=== PATIENT | male | born 2000 | race African-American/Black ===

== ENCOUNTER 2021-08-03 20:32 | Emergency (ER) | payer OTHER, SELFPAY ==
[2021-08-03 20:45] VITALS: BP 135/66; PULSE 80; RESP 18; TEMP 36.8; O2SAT 100; BMI 25.8
[2021-08-03] MEDS: Acetaminophen 325 MG TABLET 650 MG PO (20:52)
--- NOTE | 2021-08-03 21:35 | ED.WOUNDLAC ---
HPI - Wound/Laceration General Chief Complaint: Wound/Laceration Stated Complaint: eye inj Source: patient Mode of arrival: ambulatory Limitations: no limitations History of Present Illness HPI narrative: 20-year-old male presents with laceration to the left eyelid after being hit in the face with an elbow while playing basketball. Also states to feel dizzy but does not report any other symptoms. Did not lose consciousness and does not complain of any pain. Onset (ago): hour(s) (Within the hour of arrival) Location: face Place: school Patient tetanus UTD: No Context: accidental Associated symptoms: none Treatments prior to arrival: bandage Related Data Allergies Allergy/AdvReac Type Severity Reaction Status Date / Time No Known Allergies Allergy Verified 08/03/21 20:44 Review of Systems Review of Systems: Constitutional: No Fever, No Chills ENT/Mouth: No Ear Pain, No Hoarseness, No sore throat Eyes: No Eye Pain, No Swelling, No Redness, No Foreign Body Cardiovascular: No Chest Pain, No SOB Respiratory: No Cough, No Dyspnea Gastrointestinal: No Nausea, No Vomiting, No Diarrhea, No abdominal Pain Genitourinary: No Dysuria, No Hematuria Musculoskeletal: No joint pain, No Myalgias, No Joint Swelling Skin: Positive left eyelid laceration, No rash Neuro: No Weakness, No Numbness, No Paresthesias, No Loss of Consciousness, No Dizziness, No Headache Psych: No Anxiety/Panic, No Depression Heme/Lymph: no easy bruising, no Lymphadenopathy Endocrine: No Polyuria, No Polydipsia Yes all other systems are reviewed and are negative [facility] Past Medical History Attestation statement: The following information was validated with the patient. Source: old records reviewed Medical History Asthma Social History Social History Advance Directives: No Advance Directives Information Provided: Yes Physical Exam Vital Signs: Vital Signs: Last Vital Signs Temp 98.2 F 08/03/21 20:45 Pulse 80 08/03/21 20:45 Resp 18 08/03/21 20:45 BP 135/66 08/03/21 20:45 Pulse Ox 100 08/03/21 20:45 BMI result Body Mass Index 25.8 Appearance: Alert. Oriented X3. No acute distress. Head: Normal external exam. Normocephalic. Atraumatic. No Siegel signs noted. No raccoon eyes noted Eyes: PERRLA. EOMI. Conjunctiva and sclera normal. Eyelids normal. 2 cm laceration to the lateral left lower eyebrow funduscopic exam is normal. No indication of retinal detachment. No nystagmus. ENT: TM's Normal. Pharynx normal. Uvula midline. Moist mucous membranes. No trismus noted. No drooling noted. No muffled voice noted. No septal hematoma. Neck: Normal inspection. Neck supple. No adenopathy. No meningeal signs. No vertebral tenderness to palpation. No axial loading tenderness. CVS: Normal heart rate and rhythm. Heart sound normal. No murmurs noted. Respiratory: No respiratory distress. Painless inspiration. Breath sounds normal. Abdomen: Soft and nontender. No visible injury noted. Back: No CVA tenderness. Full range of motion noted. Skin: Skin warm and dry. Normal skin color. Normal skin turgor. 2 cm laceration to the lateral left lower eyebrows Extremities: No lower extremity edema. Extremities exhibit normal range of motion. Extremities nontender. Neuro: cranial nerves 2-12 intact, no focal neural deficits, strength 5/5 to all extremities, No motor deficit. No sensory deficit. Course Course Course Narrative: 20-year-old male presents with laceration to the left lateral eyebrow. Unknown when his last Tdap vaccine was updated. Cranial nerves 2-12 intact. Neurovascularly stable. Negative Romberg. No indication of retinal detachment, funduscopic exam was normal. No septal hematomas. Patient full range of motion against resistance to the cervical spine. No vertebral tenderness noted to the cervical thoracic or lumbar spine. Plan of care is to update Tdap vaccine and suture laceration. Prepped and draped in sterile fashion. Patient tolerated procedure well. Patient verbalized understanding of and agrees to plan of care discharge home. Verbalized understanding of signs and symptoms indicating need for emergent intervention. MDM - Wound/Laceration MDM Narrative Medical decision making narrative: Concussion Differential Diagnosis Differential diagnosis: Likely laceration Medical Records Attestation: I reviewed the patient's medical records. Procedures Laceration Laceration 1: Site: face Side (If applicable): left Size (cm): 2 Description: linear Depth: simple, single layer Local Anesthetic: lidocaine 2% Amount of anesthesia used (mL): 3 Pre-repair: wound explored, irrigated extensively and deep structures intact Skin layer closed with: nylon Size (cm): 6-0 Number of sutures: 4 Technique: simple, interrupted Discharge Plan Discharge Clinical Impression: Facial laceration, Concussion Patient Disposition: Home, Self-Care Instructions: Care For Your Stitches (ED), Laceration (ED), Concussion (ED), Post Concussion Syndrome (ED) Additional Instructions: You were evaluated for laceration to the left eyelid. We placed 4 sutures to this laceration. Please return in 5-7 days to have sutures removed. Please follow-up concussion protocol. You must follow-up with primary care physician this week for concussion protocol evaluation. Thank you for choosing this emergency department for evaluation. Please follow-up with primary care physician as needed. Return to the emergency department for any new, concerning, or worsening symptoms.
[2021-08-03] MEDS: Diphth,Pertus(ACell),Tet Adult 0.5 ML SYRINGE IM (22:19)
[2021-08-03] MEDS: Lidocaine HCl 2 % MPF 5 ML VIAL INFILTRATI (22:20)
== END 2021-08-03 22:28 | disposition home or self-care (01) ==
PROVIDERS: Emergency Provider Student in an Organized Health Care Education/Training Program
DX: S01.112A Laceration without foreign body of left eyelid and periocular area, initial encounter (principal); S06.0X0A Concussion without loss of consciousness, initial encounter; G44.309 Post-traumatic headache, unspecified, not intractable; Y33.XXXA Other specified events, undetermined intent, initial encounter; Y93.67 Activity, basketball; Y92.310 Basketball court as the place of occurrence of the external cause; Y99.9 Unspecified external cause status
CPT/HCPCS: 12011; 90471; 90715; 99283; 99284

== ENCOUNTER 2022-04-07 09:46 | Emergency (ER) | payer OTHER, SELFPAY ==
[2022-04-07 10:57] VITALS: BP 115/88; PULSE 88; RESP 18; TEMP 37.2; O2SAT 97; BMI 26.6
--- OUTSIDE RECORDS SUMMARY | 2022-04-07 15:51 | XMS_ITS | Continuity of Care Document ---
:2000 Author Organization [facility] Address Unavailable , Care Team Providers Name Role Phone Zackary CHUNG, Raul Irby Primary Care Physician Unavailable Encounter [facility] Date(s): 10/28/21 - 11/27/21 [facility] Attending Physician: Domo Villa Admitting Physician: Domo Villa Referring Physician: Domo Villa
--- OUTSIDE RECORDS SUMMARY | 2022-04-07 15:51 | XMS_ITS | Continuity of Care Document ---
:2000 Author Organization [facility] Address Unavailable , Care Team Providers Name Role Phone Zackary CHUNG, Raul Irby Primary Care Physician Unavailable Encounter [facility] Date(s): 09/02/21 - 11/27/21 [facility] Attending Physician: Raul Raymundo MD
--- NOTE | 2022-04-07 16:05 | ED_ITS ---
HPI - Head Injury General Chief complaint: Head Injury Stated complaint: possible concussion Time Seen by Provider: 04/07/22 15:33 Source: patient Mode of arrival: ambulatory Limitations: no limitations History of Present Illness HPI Narrative: Patient is a 21-year-old male who presents emergency department for evaluation after head injury. He reports that yesterday while at his home he struck the back of his head against a being of the attic ceiling. Denies loss of consciousness, denies any anticoagulants or coagulation disorders. He initially was having a posterior headache. Today he is experiencing intermittent blurred vision in addition to headache. Denies confusion, dizziness, lightheadedness nausea, vomiting, photophobia, phonophobia, neck pain, neck stiffness. Was sent today from [facility] for evaluation, [place]. Related Data Allergies Allergy/AdvReac Type Severity Reaction Status Date / Time banana Allergy Itching Verified 04/07/22 11:00 Review of Systems Review of Systems: Constitutional : No Fever, No Chills, No Fatigue ENT/Mouth : No sore throat, No Rhinorrhea Eyes: No Eye Pain, No Swelling, No Redness, positive blurred vision Cardiovascular : No Chest Pain, No SOB, No Dyspnea on Exertion Respiratory : No Cough, No Sputum Gastrointestinal : No Nausea, No Vomiting, No Diarrhea, No abdominalPain Genitourinary : No Dysuria, No Urinary Frequency, No Hematuria, Musculoskeletal : No joint pain, No Myalgias, No Joint Swelling Skin : No Skin Lesions, No rash Neuro : No Weakness, No Numbness, No Dizziness, positive Headache Psych : No Anxiety/Panic, No Depression Heme/Lymph: No Bruising, No Bleeding,No Lymphadenopathy Endocrine : No Polyuria, No Polydipsia Yes all other systems are reviewed and are negative [facility] Past Medical History Attestation statement: The following information was validated with the patient. Source: old records reviewed Medical History Asthma Social History Social History Advance Directives: No Advance Directives Information Provided: No Physical Exam Vital Signs: Vital Signs: Last Vital Signs Temp 98.9 F 04/07/22 10:57 Pulse 88 04/07/22 10:57 Resp 18 04/07/22 10:57 BP 115/88 10/26/22 10:57 Pulse Ox 97 04/07/22 10:57 O2 Del Method 04/07/22 10:57 BMI result Body Mass Index 26.6 Appearance: Alert.?Oriented to person, place and time. No acute distress.? Normal affect. Head: Normocephalic Eyes: Pupils equal, round and reactive to light. EOMI. Conjunctiva and sclera normal? No Siegel sign noted. No raccoon eyes noted ENT: No septal hematoma, nares patent bilaterally. External auditory canal normal tympanic membrane pearly humphrey and intact bilaterally. Dentition normal, no fractured teeth. No lesions or lacerations of oropharynx. Uvula midline. Moist mucous membranes. Neck: Normal inspection.? Neck supple.??No palpable tenderness, step-off, deformities. CVS: Heart sounds normal. Normal heart rate and rhythm.? Pulses normal.?? Respiratory: No respiratory distress.? Lung sounds clear to auscultation bilaterally?? Abdomen: Soft and non-tender. Normoactive bowel sounds. ?? Skin: Skin warm and dry.? Normal skin color.? Extremities: No lower extremity edema.? Neuro: Moves all extremities spontaneously. Sensation intact bilaterally. CN II- XII intact. No focal neuro deficits. Course Course Course Narrative: Patient is a 21-year-old male who presents emergency department for evaluation after a head injury occurred yesterday. At the time of examination he is well- appearing, no focal neurological deficits. Vital signs are stable. He is conscious alert and oriented x4, ambulatory with a steady gait, speaking clear full sentences. Examination of the head is normocephalic, no lesions or lacerations. Symptoms consistent with concussion, low suspicion for ICH/SAH/ hematoma. Would defer head CT at this time. Discussed plan of care for discharge home, rest, avoidance of prolonged screen time, stay well-hydrated, acetaminophen as as needed for pain. Reviewed worsening signs and symptoms to return back to emergency department for. All questions were answered, patient was discharged home in stable condition. MDM - Head Injury Medical Records Attestation: I reviewed the patient's medical records. Discharge Plan Discharge Clinical Impression: Concussion without loss of consciousness Patient Disposition: Home, Self-Care Instructions: Concussion (ED) Additional Instructions: Your symptoms are consistent with a concussion after head injury. Please be sure to rest over the next couple of days, drink plenty of water, avoid prolonged screen time on cell phone, computer, or television as this may worsen your headaches. You can take ibuprofen 200 mg, 3 tablets (600mg) every 6-8 hours as needed for pain, in addition to Tylenol 500 mg, 2 tablets (1,000mg) every 4-6 hours as needed for pain, but not to exceed 3 doses daily (3,000mg).? Follow-up with your primary care provider within the next week. Return to the emergency department any new or worsening symptoms or concerns. Referrals: Physician,None [Primary Care Provider] - Stand Alone Forms: Work/School Release Discharge Date/Time: 04/07/22 20:14
== END 2022-04-07 20:14 | disposition home or self-care (01) ==
PROVIDERS: Emergency Provider Emergency Medicine
DX: S06.0X0A Concussion without loss of consciousness, initial encounter (principal); Y29.XXXA Contact with blunt object, undetermined intent, initial encounter; Y93.9 Activity, unspecified; Y92.009 Unspecified place in unspecified non-institutional (private) residence as the place of occurrence of the external cause; Y99.9 Unspecified external cause status
CPT/HCPCS: 99281

== ENCOUNTER 2025-04-17 12:41 | Outpatient (AMB) | payer OTHER, SELFPAY ==
--- NOTE | 2025-04-17 12:47 | A.OFFPC_ITS ---
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 to review their health information ? ?Patient Portal. This interactive web portal will enable patients and their families to take an active role in their care by providing easy, secure access to their health information via the internet. The Patient Portal provides patients with instant access to their health information, including laboratory results, medications, allergies, demographic information, visit history, and more. In addition to managing their own care, parents and health care proxies with authorized consent will appreciate the ability to access the records of those individuals for whom they provide care. Please note: if you wish to gain access (Proxy) to another patient?s portal, you will be required to come to the Medical Records Department in person at [facility]. Both the patient giving proxy access and the proxy will need to provide photo identification and complete the appropriate authorization. The Patient Portal also allows track their appointments online. The [facility] Patient Portal also saves patients time by allowing them to submit updates to their demographic and contact information prior to their visits. Portal email notifications will also alert patients to any new activity on their portal, such as test results and new appointments. In order to initially enroll in the [facility] Patient Portal, you will need to enter some required information including the following: * your [facility] Medical Record number * your personal home email address * name * date of Please note: In order to enroll in the [facility] Patient Portal, we need to have your email address on file in your electronic medical record. ?The email address needs to be specific for one person (yourself) in order for your Portal enrollment to be successful. ?You can update your email address in person with our Registration staff when you are registering for a hospital visit. ?Otherwise, you will need to come to the Health Information Management (Medical Records) Department at [facility]. ?We are open from Tuesday ? Tuesday from 7:30 a.m. ? 4:30 p.m. ?You will be required to present a photo id. Once you have successfully enrolled in the Patient Portal, you will receive a one-time user id and password for the Portal, sent to your email address. ?This will allow you to log into the Patient Portal within 99 hrs and reset your own logon id and password, and define personal security questions. ?Once your permanent login and password have been set, you can log into the [facility] Patient Portal at any time via the blue button above or from the Portal Logon button on any page of the [facility] website. [facility] and [facility] encourage all of our patients to enroll in Patient Portal as it presents a valuable opportunity for patients and their families to actively participate in their care and stay healthy Welcome to [facility]. ?We look forward to working with you. Health screenings for men You should visit your health care provider regularly, even if you feel healthy. The purpose of these visits is to: Screen for medical issues Assess your risk for future medical problems Encourage a healthy lifestyle Update vaccinations and other preventive care services Help you get to know your provider in case of an illness Information Even if you feel fine, you should still see your provider for regular checkups. These visits can help you avoid problems in the future. For example, the only way to find out if you have high blood pressure is to have it checked regularly. High blood sugar and high cholesterol level also may not have any symptoms in the early stages. Simple blood tests can check for these conditions. There are specific times when you should see your provider or receive specific health screenings. The [place] Preventive Services Task Force publishes a list of recommended screenings. Below are screening guidelines for men ages 40 to 64. BLOOD PRESSURE SCREENING Have your blood pressure checked at least once every year. Watch for blood pressure screenings in your area. Ask your provider if you can stop in to have your blood pressure checked. Ask your provider if you need your blood pressure checked more often if: You have diabetes, heart disease, kidney problems, or are overweight or have certain other health conditions You have a first-degree relative with high blood pressure You are Black Your blood pressure top number is from 120 to 129 mm Hg, or the bottom number is from 70 to 79 mm Hg If the top number is 130 mm Hg or greater or the bottom number is 80 mm Hg or greater, this is considered stage 1 hypertension. Schedule an appointment with your provider to learn how you can lower your blood pressure. Effects of age on blood pressure CHOLESTEROL SCREENING Cholesterol screening should begin at age 35 for men with no known risk factors for coronary heart disease. Repeat cholesterol screening should take place: Every 5 years for men with normal cholesterol levels More often if changes occur in lifestyle (including weight gain and diet) More often if you have diabetes, heart disease, kidney problems, or certain other conditions COLORECTAL CANCER SCREENING If you are under age 45, talk to your provider about getting screened. You may need to be screened if you have a strong family history of colon cancer or polyps. Screening may also be considered if you have risk factors such as a history of inflammatory bowel disease or polyps. If you are age 45 to 75, you should be screened for colorectal cancer. There are several screening tests available: A stool-based fecal occult blood (gFOBT) or fecal immunochemical test (FIT) every year A stool sDNA test every 1 to 3 years Flexible sigmoidoscopy every 5 years or every 10 years with stool testing FIT done every year CT colonography (virtual colonoscopy) every 5 years Colonoscopy every 10 years You may need a colonoscopy more often if you have risk factors for colorectal cancer, such as: Ulcerative colitis A personal or family history of colorectal cancer A history of growths in your colon called adenomatous polyps DENTAL EXAM Go to the dentist once or twice every year for an exam and cleaning. Your dentist will evaluate if you have a need for more frequent visits. DIABETES SCREENING All adults who do not have risk factors for diabetes should be screened starting at age 35 and repeated every 3 years. If you have other risk factors for diabetes, such as a first degree relative with diabetes, overweight or obesity, high blood pressure, prediabetes, or a history of heart disease, you may be tested more often. If you are overweight and have other risk factors, such as high blood pressure and are planning to become , screening is recommended. EYE EXAM Have an eye exam every 2 to 4 years ages 40 to 54 and every 1 to 3 years ages 55 to 64. Your provider may recommend more frequent eye exams if you have vision problems or glaucoma risk. Have an eye exam that includes an examination of your retina (back of your eye) at least every year if you have diabetes. IMMUNIZATIONS Commonly needed vaccines include: Flu shot: get one every year COVID-19 vaccine: ask your provider what is best for you Tetanus-diphtheria and acellular pertussis (Tdap) vaccine: have as one of your tetanus-diphtheria vaccines if you did not receive it as an adolescent Tetanus-diphtheria: have a booster (or Tdap) every 10 years Varicella vaccine: receive 2 doses if you never had chickenpox or the varicella vaccine and were born in 1979 or after Hepatitis B vaccine: receive 2, 3, or 4 doses, depending on your exact circumstances, if you did not receive these as a child or adolescent, until age 59 Shingles (herpes zoster) vaccine: at or after age 50 Ask your provider if you should receive other immunizations, especially if you have certain medical conditions, such as diabetes or are at increased risk for some diseases such as pneumonia. INFECTIOUS DISEASE SCREENING Screening for hepatitis C: all adults ages 18 to 79 should get a one-time test for hepatitis C. Screening for human immunodeficiency virus (HIV): all people ages 15 to 65 should get a one-time test for HIV. Depending on your lifestyle and medical history, you may need to be screened for infections such as syphilis, chlamydia, and other infections. LUNG CANCER SCREENING You should have an annual screening for lung cancer with low-dose computed tomography (LDCT) if: You are age 50 to 80 years AND You have a 20 pack-year smoking history AND You currently smoke or have quit within the past 15 years OSTEOPOROSIS SCREENING If you are age 50 to 64 and have risk factors for osteoporosis, you should discuss screening with your provider. Risk factors can include long-term steroid use, low body weight, smoking, heavy alcohol use, having a fracture after age 50, or a family history of hip fracture or osteoporosis. Osteoporosis PHYSICAL EXAM All adults should visit their provider from time to time, even if they are healthy. The purpose of these visits is to: Screen for diseases Assess risk of future medical problems Encourage a healthy lifestyle Update vaccinations and other preventive care services Maintain a relationship with a provider in case of an illness Your height, weight, and body mass index (BMI) should be checked at every exam. During your exam, your provider may ask you about: Depression and anxiety Diet and exercise Alcohol and tobacco use Safety, such as use of seat belts and smoke detectors Your medicines and risk for interactions PROSTATE CANCER SCREENING If you're 55 through 69 years old, before having the test, talk to your provider about the pros and cons of having a PSA test. Ask about: Whether screening decreases your chance of dying from prostate cancer. Whether there is any harm from prostate cancer screening, such as side effects from testing or overtreatment of cancer when discovered. Whether you have a higher risk of prostate cancer than others. If you are age 55 or younger, screening is not generally recommended. You should talk with your provider about if you have a higher risk for prostate cancer. Risk factors include: Having a family history of prostate cancer (especially a brother or father) Being If you choose to be tested, the PSA blood test is repeated over time (yearly or less often), though the best frequency is not known. Prostate examinations are no longer routinely done on men with no symptoms. Prostate cancer SKIN EXAM Your provider may check your skin for signs of skin cancer, especially if you're at high risk. People at high risk include those who have had skin cancer before, have close relatives with skin cancer, or have a weakened immune system. TESTICULAR EXAM The US Preventive Services Task Force (USPSTF) now recommends against performing testicular self-exams. Doing testicular self-exams has been shown to have little to no benefit.
[2025-04-17 12:54] VITALS: BP 134/76; PULSE 78; RESP 12; TEMP 36.2; O2SAT 99; BMI 25.7
--- OUTSIDE RECORDS SUMMARY | 2025-04-17 15:17 | XMS_ITS | Clinical Summary ---
Author Organization [facility] Address [address] [place] [id number] Phone Care Team Providers Care Wire Coater Name Role Phone Raul Raymundo MD Primary Care Provider Allergies No known active allergies Active Problems No known active problems Social History Tobacco Use Types Packs/Day Years Used Date Smoking Tobacco: Never Assessed Tobacco Cessation:Counseling Given: Not Answered Alcohol Use Standard Drinks/Week Comments Yes 0 (1 standard drink = 0.6 oz pur e alcohol) Education Answer Date Recorded Are you interested in more education? Not on rbea e 10/09/2022 Are you concerned about learning? Not on file 10/09/2022 No 10/09/2022 No 10/09/2022 Digital Access Answer Date Recorded No 11/02/2022 No 11/02/2022 Reliable internet access at home? Not on file 11/02/2022 Device with a working camera? Not on file Sex and Gender Information Value Date Recorded Sex Assigned at Male 10/24/2022 8:42 PM EDT Legal Sex Male 8:48 AM EDT Gender Identity Male 10/24/2022 8:42 PM EDT Sexual Orientation Not on file Last Filed Vital Signs Vital Sign Reading Time Taken Comments Blood Pressure - - Pulse 86 10/24/2022 8:39 PM EDT Temperature 37.2 C (99 F) 10/24/2022 8:39 PM EDT Respiratory Rate 18 10/24/2022 8:39 PM EDT Oxygen Saturation 99% 10/24/2022 8:39 PM EDT Inhaled Oxygen Concentration - - Weight 81.6 kg (180 lb) 10/24/2022 8:39 PM EDT Height - - Body Mass Index - - Plan of Treatment Health Maintenance Due Date Last Done Comments Adult Td,Tdap Booster 2000 DEPRESSION SCREENING 2012 SMOKING Hx and SMOKELESS TOB ACCO SCREENING 2013 HPV VACCINES (1 - Male 3-dos e series) 09/08/2015 HEPATITIS C SCREENING 2018 HIV ONE-TIME SCREENING (18-6 5 YEARS) 2018 INFLUENZA VACCINE (#1) 2025 COVID-19 VACCINE (1 - 2024-2 6 season) 2025 HEPATITIS A VACCINES Aged Out No long er eligible based on patient's age to complete this topic HIB VACCINES Aged Out No longer eligi ble based on patient's age to complete this topic MENINGOCOCCAL VACCINES (ACWY) Aged Out No longer eligible based on patient's age to complete this topic MENINGOCOCCAL VACCINES (B) Aged Out N o longer eligible based on patient's age to complete this topic PNEUMOCOCCAL VACCINES (0-49 years) Aged Out No longer eligible based on patient's age to complete this topic Medical Devices Not on file Insurance S [facility] [place] [address] [address] [place] [address] [place] [address] [place] [address] [employer] [facility] Care Teams Wire Coater Relationship Specialty Start Date End Date Raul Raymundo MD [address] [facility] [place] [address] PCP - General Emergency Medicine 09/04/21 Additional Source Comments The information contained in this document represents components of the legal health record. It is not the complete legal health record.[facility]
== END 2025-04-17 13:29 | disposition home or self-care (01) ==
LOC: HO.HMCFM 12:42
PROVIDERS: PCP Nurse Practitioner Family; Visit Provider Nurse Practitioner Family
DX: Z00.00 Encounter for general adult medical examination without abnormal findings (principal); L72.0 Epidermal cyst; L29.0 Pruritus ani; Z23 Encounter for immunization; Z71.3 Dietary counseling and surveillance; Z13.9 Encounter for screening, unspecified

== ENCOUNTER 2025-04-17 12:41 | Outpatient (REF) | payer OTHER, SELFPAY ==
[2025-04-17 18:37] LABS: Hematocrit 41.3 % (42.0-52.0); Hemoglobin 13.5 g/dl (14.0-18.0); Mean Corpuscular HGB Conc 32.7 g/dl (31.0-36.0); Mean Corpuscular Hemoglobin 29.5 pg (27.0-33.0); Mean Corpuscular Volume 90.2 fL (80.0-98.0); NRBC Abs Auto 0.000 X10*3/uL (0.0-0.012); NRBC Pct Auto 0.0 /100WBC (0.0-0.2); Platelet Count 361 X10*3/uL (160-400); Red Blood Count 4.58 X10*6/uL (4.60-5.80); White Blood Count 4.2 X10*3/uL (4.8-10.8)
[2025-04-17 18:52] LABS: Microalbum/Creatinine Ratio Ur 49.0 ug/mg cr (<30)
[2025-04-17 18:52] LABS: Alanine Aminotransferase 22 U/L (0-40); Albumin Level 4.7 g/dL (3.5-5.0); Alkaline Phosphatase 61 U/L (39-117); Anion Gap 10 (12-20); Aspartate Amino Transferase 21 U/L (5-37); Blood Urea Nitrogen 9 mg/dL (9-16); Calcium 9.1 mg/dL (8.4-10.2); Carbon Dioxide 30 mmol/L (22-29); Chloride 105 mmol/L (96-108); Cholesterol 174 mg/dL (<200); Estimated Glomerular Filt Rate > 60; HDL Cholesterol 56 mg/dL (>40); Potassium 4.0 mmol/L (3.3-5.1); Sodium 141 mmol/L (135-145); Total Protein 7.9 g/dL (6.5-8.0); Triglycerides 57 mg/dL (<150)
[2025-04-17 19:10] LABS: Folate 10.6 ng/mL (> or = 4.0); Vitamin B12 1041 pg/mL (200-900)
[2025-04-18 02:45] LABS: CT PCR Urine NOT DETECTED (Not Detect.); NG PCR Urine NOT DETECTED (Not Detect.)
[2025-04-18 07:54] LABS: Syphilis Screen Nonreactive (Nonreactive)
[2025-04-18 08:33] LABS: HIV Num 1 0.06 S/CO (0.00-0.99)
== END 2025-04-17 12:42 | disposition home or self-care (01) ==
LOC: HO.WFDLDS 12:41
PROVIDERS: PCP Nurse Practitioner Family; Visit Provider Nurse Practitioner Family
DX: Z00.00 Encounter for general adult medical examination without abnormal findings (principal); L72.0 Epidermal cyst; L60.3 Nail dystrophy; K30 Functional dyspepsia; Z23 Encounter for immunization; Z11.3 Encounter for screening for infections with a predominantly sexual mode of transmission; Z71.3 Dietary counseling and surveillance; Z76.89 Persons encountering health services in other specified circumstances
CPT/HCPCS: 80053; 80061; 82043; 82306; 82570; 82607; 82746; 83036; 84443; 85027; 86780; 87389; 87491; 87591; 90471; 90472; 90656; 90715; 96127; 99385